=== PATIENT | female | born 1970 | race African-American/Black ===

== ENCOUNTER 2023-10-18 13:45 | Emergency (ER) | payer MEDICAID, OTHER ==
[~2023-10-18] VITALS: Ht 165.1 cm; Wt 89.0 kg
[2023-10-18 13:51] VITALS: BP 145/87; PULSE 78; RESP 16; TEMP 98.6; O2SAT 100
[2023-10-18] MEDS ORDERED: AMOX-494 MT (14:34)
[2023-10-18] MEDS: IBUPROFEN 600MG TABLET PO ONE (14:48)
== END 2023-10-18 16:27 | disposition home or self-care (01) ==
LOC: ER 13:45
DX: H66.91 Otitis media, unspecified, right ear (principal); E78.00 Pure hypercholesterolemia, unspecified; I10 Essential (primary) hypertension; Z90.710 Acquired absence of both cervix and uterus; Z98.890 Other specified postprocedural states
CPT/HCPCS: 99283

== ENCOUNTER 2025-01-08 13:13 | Emergency (ER) | payer OTHER ==
[~2025-01-08] VITALS: Ht 170.2 cm; Wt 95.0 kg
[~2025-01-08 13:13] MED LIST: AMOX-494 MT
[2025-01-08 13:21] VITALS: O2SAT 100
[2025-01-08] MEDS: ACETAMINOPHEN 325MG TABLET PO ONE (13:58)
[2025-01-08] MEDS: KETOROLAC 15MG/ML VIAL IM ONE (13:59)
[2025-01-08] MEDS ORDERED: AMOX1TAB16 MT (14:00)
[2025-01-08] MEDS ORDERED: CIPHCO LEFT EAR (14:00)
[2025-01-08 14:09] VITALS: BP 140/84; PULSE 72; RESP 15; TEMP 36.7; O2SAT 100
== END 2025-01-08 14:11 | disposition home or self-care (01) ==
LOC: ER 13:13
DX: H66.92 Otitis media, unspecified, left ear (principal); E78.00 Pure hypercholesterolemia, unspecified; I10 Essential (primary) hypertension; Z90.710 Acquired absence of both cervix and uterus
CPT/HCPCS: 99283; 96372; J1885